=== PATIENT | female | born 1975 | race Caucasian/White ===

== ENCOUNTER → 2022-02-24 | Outpatient (CLI) | payer BC ==
[~2022-02-24] MED LIST: AMBIEN10 MG PO; HYDROCODON-ACE1 EAC9 PO; MINOCYCLINE HCL50 MG PO; TIZANIDINE HCL4 MG PO
== END ==
LOC: US 13:14
PROVIDERS: ATTEND Family Medicine
DX: E04.9 Nontoxic goiter, unspecified (principal)
CPT/HCPCS: 76536

== ENCOUNTER → 2022-05-27 | Outpatient (CLI) | payer BC | LOC: MAMMO 14:02 | PROVIDERS: ATTEND Family Medicine | DX: Z12.31 Encounter for screening mammogram for malignant neoplasm of breast (principal) | CPT/HCPCS: 77067 ==